=== PATIENT | female | born 1950 | race Caucasian/White ===

== ENCOUNTER → 2019-07-18 | Outpatient (CLI) | payer OTHER ==
[~2019-07-18] MED LIST: ACETAMINOPHEN325 M1 PO; ADULT LOW DOSE81 MG PO; AMBIEN 5 MG TABL5 M1 PO; CALCIUM 600 +1 EAC1 PO; CALCIUM 600 WI1 EAC5 PO; CALCIUM CITRAT1 EA14 PO; CRESTOR10 MG PO; FIBER CHOICE C1.5 GM PO; FIBER CHOICE1 EACH PO; FIBERCHOICE; FISH OIL 1,001000 MG PO; IBUPROFEN 200200 M1 PO; MAGNES PO; MELOXICAM7.5 MG PO; MOBIC15 MG PO; MULTIVITAMINS PO; PROBIOTIC1 EACH PO; STATIN PO; TOPROL XL50 MG PO; VAGIFEM VAG; VITAMIN D-32000 UNIT PO; [UNRECOGNIZED DRUG - OTHER]; atrovastin
== END ==
LOC: SJCVC 13:27
PROVIDERS: ATTEND Internal Medicine Cardiovascular Disease
DX: I10 Essential (primary) hypertension (principal); E78.00 Pure hypercholesterolemia, unspecified; Z79.82 Long term (current) use of aspirin; Z79.899 Other long term (current) drug therapy

== ENCOUNTER → 2019-07-25 | Outpatient (CLI) | payer OTHER | LOC: SJCVCIMAG 07-24 08:48 | PROVIDERS: ATTEND Internal Medicine Cardiovascular Disease | DX: I08.2 Rheumatic disorders of both aortic and tricuspid valves (principal); I27.20 Pulmonary hypertension, unspecified; R07.9 Chest pain, unspecified; I10 Essential (primary) hypertension; E78.00 Pure hypercholesterolemia, unspecified; E78.5 Hyperlipidemia, unspecified; Z87.891 Personal history of nicotine dependence; Z79.899 Other long term (current) drug therapy; Z79.82 Long term (current) use of aspirin ==

== ENCOUNTER → 2019-09-05 | Outpatient (CLI) | payer OTHER | LOC: CAT 10:39 | DX: Z13.6 Encounter for screening for cardiovascular disorders (principal); I25.10 Atherosclerotic heart disease of native coronary artery without angina pectoris; E78.00 Pure hypercholesterolemia, unspecified ==